=== PATIENT | male | born 1955 | race Caucasian/White ===

== ENCOUNTER 2018-03-09 15:37 | Emergency (ER) | payer MEDICARE, MEDICAID ==
--- OUTSIDE RECORDS SUMMARY | 2018-03-09 16:01 | XMS REPORT ---
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 Seven Velarde MD Primary Care Physician Unavailable Payers Type Date Identification Numbers Payment Provider Subscriber Medicare Primary Effective: Policy Number: Medicare Yuniel Summers 2001 [id number] PayID: [id number] [address] [place] [address] [place] Policy Number: [id number] Medicaid Yuniel Summers Group Name: 1 [address] PayID: [id number] [place] [address] Problems Date Description Provider Status Onset: 06/13/2014 Dyssomnia Laury Zepeda MD Active Onset: 06/13/2014 Insomnia Laury Zepeda MD Active Onset: 06/13/2014 Obstructive sleep apnea syndrome Laury Zepeda MD Active Onset: 02/10/2015 Headache Roro Garnett M.D. 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 Active Note: January 2015: MoCA: Family History Date Family Member(s) Problem(s) Comments Father Cerebrovascular Accident (CVA) Father Mother alive and well Siblings 3 Social History Type Date Description Comments Marital Status Single Lives With Alone Occupation Disabled ETOH Use Occasionally consumes alcohol ETOH Use <1 a week Recreational Drug Use occasional marijuana Smoking Patient is a former smoker Quit 20 years ago Daily Caffeine coffee once to twice a week. 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 Tumeric 12/11/ Active Gel every day Unknown 2014 Saw Lapel 12/11/ Active Capsules 1 PO qd Unknown 2014 Glucosamine / Active Capsules 1500Com 1 po qd Unknown Chondroitin 0000 Melatonin ER / Active Tablets 10mg 1 tab at hs Unknown 0000 ER Calcium 500 +D / Active Tablets 500-1000m po qday Unknown 0000 g-Unit Belsomra 08/28/ Hx Tablets 5mg 14tab D/C Zaleplan Farrah 2015 - s 1 po at hs Hayes, 05/11/ as long as CHARANJIT, RN, 2016 you can COMMUNICATION CENTER OPERATOR-BC devote 7 hours to sleep DX dyssomnia Zaleplon 06/13/ Hx Capsules 10mg 30cap 1 tab by G47.00 Farrah 2013 - s mouth every Hayes, 05/11/ day every CHARANJIT, RN, 2016 night as COMMUNICATION CENTER OPERATOR-BC needed for sleep Nortriptyline / Hx Capsules 10mg 90cap take 1 po Roro HCL 0000 - s qhs x 2 Cowdery, 02/07/ weeks, then M.D. 2013 2 po qhs, after 2 weeks may increase to 3 po qhs if still having significant headaches. Jo Harrisone 00// Hx Capsule every day Unknown 0000 - 2016 Vital Signs Date Vital Result Comment 03/02/2018 Height 68 inches 5'8" Weight 156.50 lb Heart Rate 68 /min BP Systolic 112 mmHg BP Diastolic 72 mmHg BMI (Body Mass Index) 23.8 kg/m2 08/25/2017 Height 68 inches 5'8" Weight 161.12 lb w/shoes Heart Rate 60 /min BP Systolic Sitting 110 mmHg LA lg cuff BP Diastolic Sitting 82 mmHg LA lg cuff Respiratory Rate 14 /min BMI (Body Mass Index) 24.5 kg/m2 06/30/2017 Height 68 inches 5'8" Weight 157.00 lb Heart Rate 80 /min BP Systolic Sitting 134 mmHg BP Diastolic Sitting 84 mmHg Respiratory Rate 16 /min BMI (Body Mass Index) 23.9 kg/m2 12/23/2016 Height 68 inches 5'8" Weight 159.00 lb Heart Rate 68 /min BP Systolic Sitting 120 mmHg BP Diastolic Sitting 68 mmHg Respiratory Rate 14 /min BMI (Body Mass Index) 24.2 kg/m2 12/13/2016 Height 68 inches 5'8" Weight 164.00 lb BP Systolic 115 mmHg BP Diastolic 71 mmHg Body Temperature 98.6 F Pain Level 2 BMI (Body Mass Index) 24.9 kg/m2 08/26/2016 Height 68 inches 5'8" Weight 164.00 lb Heart Rate 82 /min BP Systolic 132 mmHg BP Diastolic 82 mmHg Respiratory Rate 14 /min Pain Level 6 BMI (Body Mass Index) 24.9 kg/m2 07/27/2016 Height 68 inches 5'8" Weight 160.00 lb Heart Rate 52 /min BP Systolic Sitting 122 mmHg BP Diastolic Sitting 72 mmHg Respiratory Rate 14 /min BMI (Body Mass Index) 24.3 kg/m2 05/12/2016 Height 68 inches 5'8" Weight 163.00 lb Heart Rate 60 /min BP Systolic Sitting 130 mmHg BP Diastolic Sitting 72 mmHg BMI (Body Mass Index) 24.8 kg/m2 11/13/2015 Height 68 inches 5'8" Weight 163.00 lb Heart Rate 60 /min BP Systolic Sitting 120 mmHg BP Diastolic Sitting 66 mmHg Respiratory Rate 14 /min O2 % BldC Oximetry 99 % BMI (Body Mass Index) 24.8 kg/m2 08/28/2015 Height 68 inches 5'8" Weight 165.00 lb Heart Rate 54 /min BP Systolic 114 mmHg BP Diastolic 62 mmHg Respiratory Rate 14 /min O2 % BldC Oximetry 98 % BMI (Body Mass Index) 25.1 kg/m2 02/24/2015 Height 68 inches 5'8" Weight 165.00 lb Heart Rate 58 /min BP Systolic Sitting 120 mmHg BP Diastolic Sitting 60 mmHg Respiratory Rate 18 /min O2 % BldC Oximetry 98 % BMI (Body Mass Index) 25.1 kg/m2 02/10/2015 Height 66 inches 5'6" Weight 165.00 lb Heart Rate 64 /min BP Systolic Sitting 118 mmHg BP Diastolic Sitting 70 mmHg BMI (Body Mass Index) 26.6 kg/m2 12/12/2014 Height 66 inches 5'6" Weight 161.00 lb Heart Rate 58 /min BP Systolic Sitting 122 mmHg BP Diastolic Sitting 58 mmHg Respiratory Rate 18 /min O2 % BldC Oximetry 99 % BMI (Body Mass Index) 26.0 kg/m2 06/13/2014 Height 68 inches 5'8" Weight 160.00 lb Heart Rate 53 /min BP Systolic Sitting 130 mmHg BP Diastolic Sitting 90 mmHg Respiratory Rate 16 /min O2 % BldC Oximetry 98 % BMI (Body Mass Index) 24.3 kg/m2 Neck Circumference in inches 16.25 02/19/2014 Height 68 inches 5'8" Weight 159.00 lb Heart Rate 76 /min BP Systolic Sitting 120 mmHg BP Diastolic Sitting 72 mmHg Respiratory Rate 18 /min BMI (Body Mass Index) 24.2 kg/m2 08/14/2013 Heart Rate 60 /min BP Systolic Sitting 130 mmHg BP Diastolic Sitting 70 mmHg Respiratory Rate 16 /min 08/15/2012 Heart Rate 68 /min BP Systolic Sitting 124 mmHg BP Diastolic Sitting 78 mmHg Respiratory Rate 14 /min 06/27/2012 Heart Rate 64 /min BP Systolic 108 mmHg BP Diastolic 60 mmHg Respiratory Rate 14 /min Results Test Date Test Result H/L Range Note Creatinine 08/08/2016 Creatinine 0.98 mg/dL 0.67-1.17 Egfr Non- 77.8 >60 Egfr 100.0 >60 1 Laboratory test finding 08/08/2016 TSH (Thyroid Stim Horm) 1.36 mcIU/mL 0.34-5.60 Free T4 (Free Thyroxine) 0.89 ng/dL 0.61-1.12 Vitamin B12 814 pg/mL 180-914 2 Folic Acid (Folate) 18.64 ng/mL >3.99 1 Because ethnic data is not always readily available, this report includes an eGFR for both -Americans and non- Americans. The National Kidney Disease Education Program (NKDEP) does not endorse the use of the MDRD equation for patients that are not between the ages of 18 and 70, are , have extremes of body size, muscle mass, or nutritional status, or are non- or non-. According to the National Kidney Foundation, irrespective of diagnosis, the stage of the disease is based on the level of kidney function: Stage Description GFR(mL/min/1.73 m(2)) 1 Kidney damage with normal or decreased GFR 90 2 Kidney damage with mild decrease in GFR 60-89 3 Moderate decrease in GFR 30-59 4 Severe decrease in GFR 15-29 5 Kidney failure <15 (or dialysis) 2 Normal Range 180 to 914 Indeterminate Range 145 to 180 Deficient Range <145 Procedures Date CPT Code Description Status 05/18/2016 41111 Removal Devitalization Tissue Wound Less Than Equal 20 Completed Square CM 05/11/2016 67671 Removal Devitalization Tissue Wound Less Than Equal 20 Completed Square CM 05/04/2016 44400 Removal Devitalization Tissue Wound Less Than Equal 20 Completed Square CM 12/28/2015 04814 Sleep Study Unattended,HRT Rate,Oxygen Sat,Resp Completed Effort/Airflow Encounters Type Date Location Provider CPT E/M Dx Office Visit 08/25/2017 2:45p [facility] Roro Garnett M.D. 45354 R51 [facility] [employer] H53.8 Z85.841 Office Visit 06/30/2017 1:00p [facility] Roro Garnett M.D. 66188 R51 [facility] [employer] H53.8 R20.2 Z85.841 Office Visit 12/23/2016 1:30p [facility] Roro Garnett M.D. 43228 Z85.841 [facility] [employer] [facility] G31.84 R51 Office Visit 12/13/2016 11:15a [facility] 57537 G57.92 CFrannie Lopez Office Visit 08/26/2016 1:00p [facility] 20046 G57.92 C.MSabrina Lopez Office Visit 07/27/2016 1:00p [facility] Roro Garnett M.D. 03937 M77.32 [facility] [employer] Z85.841 R51 R53.83 G31.84 Office Visit 06/01/2016 2:45p [facility], 73395 S86.202A DINORA BROOKS Office Visit 05/25/2016 2:45p [facility], 86703 S86.202A DINORA BROOKS Office Visit 05/12/2016 2:45p [facility] Santiago Dumont 42865 M77.52 John Case Office Visit 04/27/2016 2:00p [facility], 34286 S86.202A [facility] Office Visit 11/13/2015 1:30p [facility] Farrah [place], 04575 G47.33 [facility] HUE DONOHUE, COMMUNICATION CENTER OPERATOR-JAMAL G47.00 Office Visit 08/28/2015 2:00p [facility] Farrah [facility] 14799 G47.00 [facility] HUE DONOHUE, COMMUNICATION CENTER OPERATOR-JAMAL G47.33 Office Visit 02/24/2015 2:15p [facility] Farrah [place] 12444 327.23 [facility] HUE DONOHUE, HOLLY-JAMAL 780.52 Office Visit 02/10/2015 8:30a [place]/Gerald Garnett 26003 784.0 [facility] [employer] Operator M.DKaty 331.83 327.23 780.79 Office Visit 12/12/2014 1:15p [facility] [place], 17603 780.52 [facility] HUE DONOHUE, HOLLY-JAMAL 327.23 Office Visit 06/13/2014 2:00p [place] [address] 780.59 [facility] [employer] Operator 780.52 327.23 Office Visit 02/19/2014 11:00a [facility] Roor Garnett M.D. 10313 784.0 [facility] [place] [place] [employer] 331.83 780.52 Office Visit 08/14/2013 2:00p [facility] Roro Garnett M.D. 28730 784.0 [facility] [employer] Operator 331.83 Office Visit 02/08/2013 11:30a [facility] Roro Garnett M.D. 69905 784.0 [facility] [place] [place] [employer] 331.83 Office Visit 08/15/2012 1:00p [facility] Roro Garnett M.D. 58684 331.83 [facility] [place] 784.0 Office Visit 06/27/2012 11:15a [facility] Roro Garnett M.D. 73392 784.0 [facility] [employer] 331.83 780.52 Plan of Care Future Appointment(s):08/31/2018 1:30 pm - Roro Garnett M.D. at [facility]03/02/2018 - Roro Garnett M.D.R51 HeadacheFollow up: 6 OCDLFMW86.8 Other visual cvmhddjsgwsxQ03.84 Mild cognitive impairment, so frcisiA56.841 Personal history of malignant neoplasm of brainFollow up:patient is requesting records be sent to DR. Carlos Joyce at [facility] [phone] 6 months (30 min)
--- NOTE | 2018-03-09 17:12 | ED ---
Abdominal Pain/Male - HPI Summary HPI Summary: [facility] documenting for attending Inés Garrido. Pt is a 62 y/o M c/o abd pain and has not had a bowel movement for ~6 days. Pain is rated an 8/10 at its worst, per director of assessment. Assoc. Sx: constipation, abd pain, decreased PO intake. He reports feeling disoriented like he has an unsteady gait secondary to pain. He was seen recently for which they believed he had diverticulitis. The patient was prescribed ABX that he has been taking for 3 days now. He reports not having eaten a meal since last night. Medications : Ciprofloxacin. I, Dr. Garrido, personally performed the services described in this documentation as scribed in my presence and it is both accurate and complete. - History of Current Complaint Chief Complaint: EDAbdPain Stated Complaint: ABD PAIN Time Seen by Provider: 03/09/18 16:59 Hx Obtained From: Patient Onset/Duration: Sudden Onset, Lasting Days - 6, Still Present Timing: Constant Severity Currently: Severe Pain Intensity: 8 Pain Scale Used: 0-10 Numeric Location: Diffuse Character: Other: - "stabbing" Alleviating Factor(s): Nothing Associated Signs And Symptoms: Positive: Constipation - Allergies/Home Medications Allergies/Adverse Reactions: Allergies Allergy/AdvReac Type Severity Reaction Status Date / Time codeine AdvReac Nausea And Verified 03/09/18 19:19 Vomiting PMH/Surg Hx/FS Hx/Imm Hx Endocrine/Hematology History: Denies: Hx Diabetes Cardiovascular History: Denies: Hx Coronary Artery Disease, Hx Hypertension, Hx Pacemaker/ICD History: Denies: Hx Renal Disease Sensory History: Denies: Hx Hearing Aid Psychiatric History: Denies: Hx Panic Disorder - Cancer History Cancer Type, Location and Year: ASTROCYTOMA 1971 Hx Radiation Therapy: Yes - Surgical History Surgery Procedure, Year, and Place: BRAIN TUMOR REMOVED 1971. BRAIN SURGERY 1991-REMOVED PART OF SKULL FROM INFECTION. SHATTERED LEFT LEG PUT BACK TOGETHER 2000 HARDWARE REMOVED. THROAT POLYP REMOVED. SKIN CARCINOMA'S REMOVED Infectious Disease History: No Infectious Disease History: Denies: Traveled Outside the [place] in Last 30 Days - Family History Known Family History: Negative: Cardiac Disease, Hypertension, Diabetes - Social History Occupation: Employed Full-time - [place] Lives: With Family Alcohol Use: Rare Alcohol Amount: 1 beer a month Hx Substance Use: No Substance Use Type: Reports: None Hx Tobacco Use: No Smoking Status (MU): Former Smoker - quit 25 years ago Review of Systems Positive: Other - POS: decreased PO intake, constipation Positive: Abdominal Pain All Other Systems Reviewed And Are Negative: Yes Physical Exam - Summary Physical Exam Summary: VITAL SIGNS: Reviewed. GENERAL: Patient is a well-developed and nourished male who is lying comfortable in the stretcher. Patient is not in any acute respiratory distress. HEAD AND FACE: No signs of trauma. No ecchymosis, hematomas or skull depressions. No sinus tenderness. EYES: PERRLA, EOMI x 2, No injected conjunctiva, no nystagmus. EARS: Hearing grossly intact. Ear canals and tympanic membranes are within normal limits. MOUTH: Oropharynx within normal limits. NECK: Supple, trachea is midline, no adenopathy, no JVD, no carotid bruit, no c- spine tenderness, neck with full ROM. CHEST: Symmetric, no tenderness at palpation LUNGS: Clear to auscultation bilaterally. No wheezing or crackles. CVS: Regular rate and rhythm, S1 and S2 present, no murmurs or gallops appreciated. ABDOMEN: Soft, non-tender. No signs of distention. No rebound no guarding, and no masses palpated. Bowel sounds are normal. EXTREMITIES: FROM in all major joints, no edema, no cyanosis or clubbing. NEURO: Alert and oriented x 3. No acute neurological deficits. Speech is normal and follows commands. SKIN: Dry and warm Triage Information Reviewed: Yes Vital Signs On Initial Exam: Initial Vitals Temp Pulse Resp BP Pulse Ox 97.9 F 73 16 128/78 99 03/09/18 15:41 03/09/18 15:41 03/09/18 15:41 03/09/18 15:41 03/09/18 15:41 Vital Signs Reviewed: Yes Diagnostics - Vital Signs Vital Signs Temp Pulse Resp BP Pulse Ox 03/09/18 15:41 97.9 F 73 16 128/78 99 - Laboratory Result Diagrams: 03/09/18 17:33 03/09/18 17:33 Lab Statement: Any lab studies that have been ordered have been reviewed, and results considered in the medical decision making process. - Radiology Abdomen XR Xray Interpretation: Positive (See Comments) - IMPRESSION: large amounts retained stool Radiology Interpretation Completed By: Radiologist - Report has been reviewed by provider and radiologist. - EKG 1747 Cardiac Rate: NL - 58bpm EKG Rhythm: Sinus Rhythm ST Segment: Normal Abdominal Pain Fem Course/Dx - Course Assessment/Plan: This patient is a 62-year-old male who presents to the emergency department with chief complaint of a been constipated. Patient reports that he has not had a bowel movement for the last 6 days. He reports that 2 days ago he went to [facility] 3 he was diagnosed with diverticulitis for which the patient is taking ciprofloxacin and Flagyl. However he still is constipated. The patient reports that he is very uncomfortable. He denies any nausea vomiting, denies any chest pain shortness of breath or palpitations. Blood test results without any significant abnormality except for CRP over 112. In the ED course the patient was given IV fluids, the patient was given MiraLAX, lactulose, magnesium citrate and soapsuds enema. After medications the patient's symptoms have significantly improved. Therefore the patient will be discharged home with follow-up with primary care physician. Patient is hemodynamically stable alert and oriented 3. He was recommended to continue taking the Flagyl the ciprofloxacin for the diverticulitis - Diagnoses Differential Diagnosis/HQI/PQRI: Bowel Obstruction, Constipation, Diverticulitis Provider Diagnoses: Constipation, Diverticulitis Discharge - Sign-Out/Discharge Documenting (check all that apply): Patient Departure - Discharge Plan Condition: Stable Disposition: HOME Prescriptions: Magnesium Hydroxide LIQ* [Milk of Magnesia LIQ*] 30 ml PO BID PRN #1 btl PRN Reason: Constipation Polyethylene Glycol 3350* [Miralax*] 17 gm PO DAILY PRN #12 packet PRN Reason: Constipation Patient Education Materials: Constipation (ED) Referrals: Seven Velarde MD [Primary Care Provider] - 3 Days Additional Instructions: RETURN TO THE ED FOR ANY WORSENING OR NEW SYMPTOMS. - Billing Disposition and Condition Condition: STABLE Disposition: Home Attestations Scribe Attestation: IDr. Garrido personally performed the services described in this documentation as scribed in my presence and it is both accurate and complete. User Type: Provider with Scribe Provider Attestation: The documentation recorded by the scribe accurately reflects the service I personally performed and the decisions made by me.
[2018-03-09] MEDS ORDERED: NS 0.9% 1000 ML* 1,000 ML IV ONE (17:20)
[2018-03-09 17:45] LABS: ABS Basophils 0 10^3/ul (0-0.2); ABS Eosinophils 0 10^3/ul (0-0.6); ABS Lymphocytes 1.1 10^3/ul (1.0-4.8); ABS Monocytes 1.4 10^3/ul (0-0.8); ABS Neutrophils 8.1 10^3/ul (1.5-7.7); ABS Nucleated RBC 0 10^3/ul; Eosinophil % 0.3 % (0-6); Hematocrit 45 % (42-52); Hemoglobin 15.6 g/dl (14.0-18.0); Mean Corpuscular HGB Conc 35 g/dl (31-36); Mean Corpuscular Hemoglobin 30 pg (27-31); Mean Corpuscular Volume 85 fL (80-94); Mean Platelet Volume 7.1 um3 (7.4-10.4); Nucleated Red Blood Cells % 0; Platelet Count 281 10^3/ul (150-450); Red Cell Distribution Width 14 % (10.5-15); White Blood Count 10.6 10^3/ul (3.5-10.8)
[2018-03-09 18:06] LABS: EGFR Non-African American 76.3 (>60)
--- NOTE | 2018-03-09 18:23 | RAD ---
INDICATION: Abdominal pain and constipation COMPARISON: None TECHNIQUE: Erect and supine views of the abdomen are submitted. FINDINGS: Bones: There are no acute bony findings. Soft tissues: The soft tissues appear normal. The psoas margins are sharp. Bowel gas pattern: There is large amount retained stool throughout the colon Calcifications: There are no abnormal calcifications. Other: None IMPRESSION: LARGE AMOUNT RETAINED STOOL.
[2018-03-09] MEDS ORDERED: Polyethylene Glycol 3350* 17 GM PACKET PO PRN (19:16)
[2018-03-09] MEDS ORDERED: Magnesium CITRATE* 300 ML BTL PO ONE ×2 (19:16→21:18)
[2018-03-09] MEDS ORDERED: Mineral Oil ENEMA* 1 BOTTLE PR ONE (21:18)
[2018-03-09 22:04] VITALS: BP 128/80
== END 2018-03-09 22:00 | disposition home or self-care (01) ==
LOC: ED 15:37
DX: K59.00 Constipation, unspecified (principal); K57.92 Diverticulitis of intestine, part unspecified, without perforation or abscess without bleeding
CPT/HCPCS: 36415; 74019; 80053; 82550; 83605; 83690; 85025; 86140; 93005; 96360; 99283; A9270-GY